=== PATIENT | male | born 1990 | race Caucasian/White ===

== ENCOUNTER 2017-07-26 19:11 | Emergency (ER) | payer OTHER ==
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
[2017-07-26 19:52] VITALS: RESP 16; TEMP 98.6; O2SAT 96
[2017-07-26] MEDS ORDERED: IBUPROFEN 200 MG TAB PO ONE (19:52)
[2017-07-26 20:44] VITALS: BP 121/64; PULSE 74
== END 2017-07-26 20:43 | disposition home or self-care (01) ==
DX: S43.402A Unspecified sprain of left shoulder joint, initial encounter (principal); V49.50XA Passenger injured in collision with unspecified motor vehicles in traffic accident, initial encounter; Y92.410 Unspecified street and highway as the place of occurrence of the external cause; Y99.8 Other external cause status; Y93.55 Activity, bike riding